=== PATIENT | male | born 1985 | race Caucasian/White ===

== ENCOUNTER 2022-08-15 10:05 | Emergency (ER) | payer BC ==
[~2022-08-15] VITALS: Ht 180.3 cm; Wt 89.3 kg
[2022-08-15 11:18] LABS: BASO # 0.1 10^3/uL (0.0-0.2); BASO % 0.7 % (0.0-1.0); EOS # 0.1 10^3/uL (0.0-0.5); HEMATOCRIT 49.1 % (42.0-52.0); HEMOGLOBIN 16.7 g/dl (13.5-17.5); LYMPH # 2.7 10^3/uL (1.5-5.0); LYMPH % 23.3 % (24.0-44.0); MEAN CORPUSCULAR HEMOGLOBIN 31.3 pg (27.0-33.0); MEAN CORPUSCULAR VOLUME 91.9 fl (80.0-96.0); MONO # 0.9 10^3/uL (0.0-0.8); MONO % 7.9 % (2.0-8.0); NEUTROPHILS # 7.6 10^3/uL (1.5-8.5); NEUTROPHILS % 66.5 % (36.0-66.0); PLATELET COUNT, AUTOMATED 292 10^3/uL (150-450); RED BLOOD COUNT 5.34 10^6/uL (4.30-6.10); WHITE BLOOD COUNT 11.5 10^3/uL (4.0-10.0)
[2022-08-15 11:29] LABS: INR 0.91; PARTIAL THROMBOPLASTIN TIME 28.6 SECONDS (24.8-34.2); PROTHROMBIN TIME 12.4 SECONDS (12.5-14.5)
[2022-08-15 11:40] LABS: ALBUMIN 4.4 G/DL (3.2-5.2); BILIRUBIN,DIRECT 0.2 MG/DL (<0.4); BILIRUBIN,TOTAL 0.7 MG/DL (0.3-1.2); TOTAL PROTEIN 7.5 G/DL (5.7-8.2)
[2022-08-15 11:41] LABS: CK-MB VALUE MASS < 1.0 NG/ML (<3.6); CPK CREATINE PHOSPHOKINASE 84 U/L (46-171); MB/CK RELATIVE INDEX 1.19 (< OR =4)
[2022-08-15 11:43] LABS: RSV AMPLIFICATION NEGATIVE (NEGATIVE)
[2022-08-15] MEDS ORDERED: ISOVUE-370 76% 100ML VIAL As Ordered ONE (12:09)
[2022-08-15 12:30] LABS: CK-MB VALUE MASS < 1.0 NG/ML (<3.6)
[2022-08-15 12:31] LABS: CPK CREATINE PHOSPHOKINASE 75 U/L (46-171); MB/CK RELATIVE INDEX 1.33 (< OR =4)
[2022-08-15 13:20] VITALS: BP 120/88
== END 2022-08-15 13:22 | disposition home or self-care (01) ==
LOC: M ED 10:05
DX: R07.89 Other chest pain (principal); B34.9 Viral infection, unspecified; R00.1 Bradycardia, unspecified; Z86.16 Personal history of COVID-19; F17.200 Nicotine dependence, unspecified, uncomplicated

== ENCOUNTER 2023-02-27 19:04 | Emergency (ER) | payer BC ==
[~2023-02-27] VITALS: Ht 180.3 cm; Wt 83.0 kg
[2023-02-27 20:19] VITALS: TEMP 98.9
[2023-02-27 20:26] LABS: BASO # 0.1 10^3/uL (0.0-0.2); BASO % 0.6 % (0.0-1.0); EOS # 0.2 10^3/uL (0.0-0.5); EOS % 2.3 % (0.0-3.0); HEMATOCRIT 42.3 % (42.0-52.0); HEMOGLOBIN 14.3 g/dl (13.5-17.5); LYMPH # 2.9 10^3/uL (1.5-5.0); LYMPH % 30.6 % (24.0-44.0); MEAN CORPUSCULAR HEMOGLOBIN 30.7 pg (27.0-33.0); MEAN CORPUSCULAR HGB CONC 33.8 g/dl (32.0-36.5); MEAN CORPUSCULAR VOLUME 90.8 fl (80.0-96.0); MONO # 0.7 10^3/uL (0.0-0.8); MONO % 7.5 % (2.0-8.0); NEUTROPHILS # 5.6 10^3/uL (1.5-8.5); NEUTROPHILS % 58.7 % (36.0-66.0); PLATELET COUNT, AUTOMATED 228 10^3/uL (150-450); RED BLOOD COUNT 4.66 10^6/uL (4.30-6.10); WHITE BLOOD COUNT 9.5 10^3/uL (4.0-10.0)
[2023-02-27] MEDS ORDERED: KETOROLAC 30 MG/ML 1ML VIAL IV ONE (20:30)
[2023-02-27] MEDS ORDERED: NS 1,000 ML IV ONE (20:30)
[2023-02-27 20:55] LABS: ALBUMIN 3.7 G/DL (3.2-5.2); ALKALINE PHOSPHATASE 70 U/L (46-116); ALT/SGPT 14 U/L (7.0-40); AST/SGOT < 8 U/L (<34); BILIRUBIN,TOTAL 0.3 MG/DL (0.3-1.2); BLOOD UREA NITROGEN 15 MG/DL (9-23); CALCIUM LEVEL 8.8 MG/DL (8.5-10.1); CARBON DIOXIDE LEVEL 29 MMOL/L (20-31); CHLORIDE LEVEL 109 MMOL/L (98-107); CREATININE FOR GFR 0.86 MG/DL (0.70-1.30); GLOMERULAR FILTRATION RATE > 60.0 (>60); GLUCOSE, FASTING 95 MG/DL (60-100); POTASSIUM SERUM 3.8 MMOL/L (3.5-5.1); SODIUM LEVEL 145 MMOL/L (136-145)
[2023-02-27 21:46] LABS: RSV AMPLIFICATION NEGATIVE (NEGATIVE)
[2023-02-27] MEDS ORDERED: VERA40TA PO (22:58)
[2023-02-27] MEDS ORDERED: VERAPAMIL 40 MG TAB PO ONE (23:00)
[2023-02-27 23:07] VITALS: BP 124/88; O2SAT 97
== END 2023-02-27 23:19 | disposition home or self-care (01) ==
LOC: M ED 19:04
DX: G44.009 Cluster headache syndrome, unspecified, not intractable (principal); F17.200 Nicotine dependence, unspecified, uncomplicated
CPT/HCPCS: 70450; 71046; 80053; 83605; 85025; 87040; 87631; 96374; 99284; J1885